=== PATIENT | female | born 1980 | race African-American/Black ===

== ENCOUNTER 2019-09-11 03:44 | Emergency (ER) | payer MEDICAID ==
[~2019-09-11] VITALS: Ht 160 cm; Wt 78.6 kg
[2019-09-11 03:47] VITALS: BP 168/117
[2019-09-11] MEDS ORDERED: PENICILLIN VK 500MG TABLET PO ONE (04:00)
[2019-09-11] MEDS ORDERED: APAP/CODEINE 300/30MG TABLET PO PRN (04:00)
[2019-09-11] MEDS ORDERED: PENICILLIN VK 500MG TABLET ONE (04:21)
[2019-09-11] MEDS ORDERED: APAP/CODEINE 300/30MG TABLET ONE (04:38)
== END 2019-09-11 04:44 | disposition home or self-care (01) ==
LOC: ED 04:30
DX: K08.89 Other specified disorders of teeth and supporting structures (principal); F17.200 Nicotine dependence, unspecified, uncomplicated
CPT/HCPCS: 99283

== ENCOUNTER 2019-12-16 00:54 | Emergency (ER) | payer MEDICAID, OTHER ==
[~2019-12-16] VITALS: Ht 160 cm; Wt 79.4 kg
[2019-12-16 00:56] VITALS: BP 195/133
--- NOTE | 2019-12-16 01:06 | NUR ---
PT REPORTS FACIAL SWELLING STARTING X2 DAYS AGO. REPORTS SWELLING BECAME MUCH WORSE AND MORE PAINFUL TONIGHT. PT DENIES ANY DIFFICULTY SWALLOWING OR DIFFICULTY BREATHING. PT HAS EXTENSIVE TOOTH DECAY. ERP IN ROOM TO EVAL PT. PT CONNECTED TO SPO2, CALL LIGHT WITH REACH.
== END 2019-12-16 01:27 | disposition home or self-care (01) ==
LOC: ED 01:10
DX: K02.9 Dental caries, unspecified (principal); R51 Headache; I11.0 Hypertensive heart disease with heart failure; I50.9 Heart failure, unspecified; F17.210 Nicotine dependence, cigarettes, uncomplicated
CPT/HCPCS: 99283; 99406

== ENCOUNTER 2020-08-19 14:10 | Emergency (ER) | payer MEDICAID ==
[~2020-08-19] VITALS: Ht 160 cm; Wt 79.0 kg
[2020-08-19 14:24] VITALS: BP 138/93
[2020-08-19 15:06] LABS: ALBUMIN 3.4 g/dL (3.4-5.0); ANION GAP 6 mmol/L (5-15); CHLORIDE 104 mmol/L (98-107)
[2020-08-19 15:11] LABS: ALANINE AMINOTRANSFERASE 41 U/L (12-78); ALKALINE PHOSPHATASE 117 U/L (45-117); BILIRUBIN,TOTAL 0.6 mg/dL (0.2-1.0); CREATININE 1.24 mg/dL (0.55-1.02); TOTAL PROTEIN 7.4 g/dL (6.4-8.2)
[2020-08-19 15:12] LABS: BASOPHILS % (AUTO) 1 % (0-1); EOSINOPHILS % (AUTO) 0 % (1-7); LYMPHOCYTES % (AUTO) 16 % (22-44); MD NO; MEAN CORPUSCULAR HEMOGLOBIN 31.8 pg (27.0-34.8); MEAN CORPUSCULAR HGB CONC 32.8 g/dL (32.4-35.8); MEAN PLATELET VOLUME 8.7 fL (7.4-10.4); MONOCYTES % (AUTO) 9 % (2-9); NEUTROPHILS % (AUTO) 74 % (42-75); PLATELET COUNT 284 x10^3/uL (130-400); RED BLOOD COUNT 5.21 x10^6/uL (3.82-5.3); RED CELL DISTRIBUTION WIDTH 14.6 % (9.6-15.2)
--- NOTE | 2020-08-19 16:35 | NUR ---
[email or web address]
--- NOTE | 2020-08-19 16:49 | NUR ---
[employer]PER[employer] [facility] ROOM: CALLED FOR ROOM, NO ANSWER
--- NOTE | 2020-08-19 17:06 | NUR ---
NILX 3
== END 2020-08-19 17:09 | disposition left against medical advice (07) ==
LOC: ED 15:03
DX: R10.9 Unspecified abdominal pain (principal)
CPT/HCPCS: 36415; 80053; 85025; 99283